=== PATIENT | female | born 1950 | race Caucasian/White ===

== ENCOUNTER 2023-04-20 12:23 | Emergency (ER) | payer MEDICARE, OTHER ==
[~2023-04-20] VITALS: Ht 157.5 cm; Wt 115.1 kg
[2023-04-20] MEDS ORDERED: OZEMPIC0.25 MG/02 (12:46)
[2023-04-20] MEDS ORDERED: MACROBID 100 M100 MG PO (12:46)
[2023-04-20] MEDS ORDERED: ONDANSETRON ODT8 MG PO (14:59)
[2023-04-20] MEDS ORDERED: HYDROCODON-ACE1 EA10 PO (14:59)
[2023-04-20] MEDS ORDERED: MELOXICAM15 MG PO (14:59)
[2023-04-20 15:06] VITALS: BP 134/77
== END 2023-04-20 15:08 | disposition home or self-care (01) ==
LOC: ED 12:23
DX: K80.50 Calculus of bile duct without cholangitis or cholecystitis without obstruction (principal); I10 Essential (primary) hypertension; E11.9 Type 2 diabetes mellitus without complications; Z79.899 Other long term (current) drug therapy
CPT/HCPCS: 74177; 76705; 96374; 96375; 99284-25; J2270; J2405; J7030; Q9967